=== PATIENT | female | born 1980 | race Two or more races ===

== ENCOUNTER → 2020-05-28 | Outpatient (CLI) | payer OTHER ==
--- NOTE | 2020-06-10 15:46 | REPMRS ---
Patient History The patient states she had a clinical breast exam in 2019. Family history of breast cancer at age 49 in maternal aunt, colorectal cancer in maternal grandmother, lung cancer in paternal grandfather. 3D TOMOSYNTHESIS WAS PERFORMED. The Sanjeev Boo lifetime risk for breast cancer is 14.3%. Volpara breast density b. Digital Woman Screen Mammo: May 28, 2020 - Exam #: [id number] Bilateral CC and MLO view(s) were taken. Technologist: [place] Philippe Technologist FINDINGS: There are scattered fibroglandular densities. There has been no change in the appearance of the mammogram from the prior studies. There is a mild amount of residual fibroglandular tissue which is fairly symmetric. There is no interval development of dominant mass, architectural distortion, or clustered microcalcification suggestive of malignancy. Assessment: BI-RADS/ACR category 1 mammogram. Negative Mammogram. Recommendation Routine screening mammogram in 1 year (for women over age 40). This mammogram was interpreted with the aid of an FDA-approved computer-aided dectection system. Electronically Signed By: Luis Fernando Rangel MD 06/10/20 [id number]
== END ==
LOC: M WHC 11:00
PROVIDERS: ATTEND Nurse Practitioner Family
DX: Z01.419 Encounter for gynecological examination (general) (routine) without abnormal findings (principal); Z12.31 Encounter for screening mammogram for malignant neoplasm of breast
CPT/HCPCS: 77063; 77067; 87624; G0123; G0463

== ENCOUNTER → 2020-05-28 | Outpatient (REF) | payer OTHER | LOC: M SFHCWAGY 18:42 | PROVIDERS: ATTEND Nurse Practitioner Family | DX: Z12.4 Encounter for screening for malignant neoplasm of cervix (principal); R87.610 Atypical squamous cells of undetermined significance on cytologic smear of cervix (ASC-US) | CPT/HCPCS: 87624; G0123 ==

== ENCOUNTER 2020-09-21 11:25 | Emergency (ER) | payer OTHER ==
[~2020-09-21] VITALS: Ht 165.1 cm; Wt 76.7 kg
[2020-09-21] MEDS ORDERED: ACET1TAB55 PO (11:34)
[2020-09-21] MEDS ORDERED: ATOR1TAB19 (11:34)
[2020-09-21] MEDS ORDERED: PLEG15IN (11:34)
[2020-09-21] MEDS ORDERED: EXCETAB33 PO (11:34)
[2020-09-21] MEDS ORDERED: OMEP-221 (11:34)
[2020-09-21] MEDS ORDERED: SERT50TA29 (11:34)
[2020-09-21] MEDS ORDERED: NS 1,000 ML IV ONE (11:55)
[2020-09-21] MEDS ORDERED: MORPHINE 4 MG/ML 1ML VIAL/SYRINGE (J2270) IV ONE (11:55)
[2020-09-21] MEDS ORDERED: ACETAMINOPHEN TAB 650MG DOSE (2X325MG) PO ONE (11:55)
[2020-09-21] MEDS ORDERED: PROMETHAZINE INJ 25 MG/ML VIAL (J2550) IV ONE (11:55)
[2020-09-21] MEDS ORDERED: IBUPROFEN 800 MG TAB PO ONE (13:35)
[2020-09-21 14:21] VITALS: BP 117/78
== END 2020-09-21 14:25 | disposition home or self-care (01) ==
LOC: M ED 11:25
DX: G43.909 Migraine, unspecified, not intractable, without status migrainosus (principal); R11.2 Nausea with vomiting, unspecified; G35 Multiple sclerosis; E78.5 Hyperlipidemia, unspecified; K21.9 Gastro-esophageal reflux disease without esophagitis; F17.200 Nicotine dependence, unspecified, uncomplicated; Z79.82 Long term (current) use of aspirin; Z79.899 Other long term (current) drug therapy
CPT/HCPCS: 96361; 96374; 96375; 99284; J2270

== ENCOUNTER 2020-09-23 12:50 | Emergency (ER) | payer OTHER ==
[~2020-09-23] VITALS: Ht 165.1 cm; Wt 77.8 kg
[~2020-09-23 12:50] MED LIST: ACET1TAB55 PO; ATOR1TAB19; EXCETAB33 PO; OMEP-221; PLEG15IN; SERT50TA29
[2020-09-23] MEDS ORDERED: NS 1,000 ML IV ONE (13:40)
[2020-09-23] MEDS ORDERED: KETOROLAC 30 MG/ML 1ML VIAL IV ONE (13:40)
[2020-09-23] MEDS ORDERED: METOCLOPRAMIDE INJ 10MG/2ML VIAL (J2765 PER 1) IV ONE (13:40)
[2020-09-23 14:01] LABS: BASO % 0.5 % (0.0-1.0); EOS # 0.1 10^3/uL (0.0-0.5); EOS % 1.7 % (0.0-3.0); HEMATOCRIT 34.9 % (36.0-47.0); HEMOGLOBIN 11.2 g/dl (12.0-15.5); LYMPH # 2.6 10^3/uL (1.5-5.0); LYMPH % 43.5 % (24.0-44.0); MEAN CORPUSCULAR HEMOGLOBIN 29.9 pg (27.0-33.0); MEAN CORPUSCULAR HGB CONC 32.1 g/dl (32.0-36.5); MEAN CORPUSCULAR VOLUME 93.1 fl (80.0-96.0); MONO # 0.6 10^3/uL (0.0-0.8); MONO % 9.2 % (2.0-8.0); NEUTROPHILS # 2.7 10^3/uL (1.5-8.5); NEUTROPHILS % 44.8 % (36.0-66.0); PLATELET COUNT, AUTOMATED 295 10^3/uL (150-450); RED BLOOD COUNT 3.75 10^6/uL (4.00-5.40)
[2020-09-23 14:23] LABS: BLOOD UREA NITROGEN 12 MG/DL (7-18); CALCIUM LEVEL 9.1 MG/DL (8.5-10.1); CARBON DIOXIDE LEVEL 27 MEQ/L (21-32); CHLORIDE LEVEL 111 MEQ/L (98-107); GLOMERULAR FILTRATION RATE > 60.0 (>60); GLUCOSE, FASTING 90 MG/DL (70-100); POTASSIUM SERUM 4.4 MEQ/L (3.5-5.1); SODIUM LEVEL 142 MEQ/L (136-145)
[2020-09-23] MEDS ORDERED: ONDA4TAB6 PO (14:49)
[2020-09-23] MEDS ORDERED: KETO10TAB PO (14:49)
[2020-09-23 14:54] VITALS: BP 104/54
== END 2020-09-23 15:04 | disposition home or self-care (01) ==
LOC: M ED 12:50
DX: G43.909 Migraine, unspecified, not intractable, without status migrainosus (principal); G35 Multiple sclerosis; R55 Syncope and collapse; Z79.82 Long term (current) use of aspirin; Z79.899 Other long term (current) drug therapy
CPT/HCPCS: 36415; 80048; 85025; 96361; 96374; 96375; 99284; J1885; J2765

== ENCOUNTER 2021-02-10 02:38 | Emergency (ER) | payer OTHER ==
[~2021-02-10] VITALS: Ht 165.1 cm; Wt 66.8 kg
[~2021-02-10 02:38] MED LIST changes: +KETO10TAB PO; +ONDA4TAB6 PO
[2021-02-10] MEDS ORDERED: RIZA10TA2 (03:13)
[2021-02-10] MEDS ORDERED: VENL37.598 (03:13)
[2021-02-10] MEDS ORDERED: diphenhydrAMINE 50MG/ML VIAL (J1200) IV ONE (07:20)
[2021-02-10] MEDS ORDERED: NS 1,000 ML IV ONE (07:20)
[2021-02-10] MEDS ORDERED: ACETAMINOPHEN 500 MG TAB PO ONE (07:20)
[2021-02-10] MEDS ORDERED: KETOROLAC 30 MG/ML 1ML VIAL IV ONE (07:20)
[2021-02-10] MEDS ORDERED: methylPREDNISolone 125MG 2ML VIAL IV ONE (10:05)
[2021-02-10 11:12] VITALS: BP 118/69
[2021-02-11] MEDS ORDERED: ACET1TAB16 PO (16:50)
== END 2021-02-10 11:14 | disposition home or self-care (01) ==
LOC: M ED 02:38
DX: G43.909 Migraine, unspecified, not intractable, without status migrainosus (principal); R11.0 Nausea; E78.5 Hyperlipidemia, unspecified; G35 Multiple sclerosis; F17.200 Nicotine dependence, unspecified, uncomplicated; Z79.82 Long term (current) use of aspirin; Z79.899 Other long term (current) drug therapy
CPT/HCPCS: 84702; 96361; 96374; 96375; 99284; J1200; J1885; J2930

== ENCOUNTER 2021-02-11 11:18 | Emergency (ER) | payer OTHER ==
[~2021-02-11] VITALS: Ht 165.1 cm; Wt 76.2 kg
[~2021-02-11 11:18] MED LIST changes: +RIZA10TA2; +VENL37.598
[2021-02-11 11:19] VITALS: BP 138/91
[2021-02-11] MEDS ORDERED: diphenhydrAMINE 50MG/ML VIAL (J1200) IV ONE (13:10)
[2021-02-11] MEDS ORDERED: ACETAMINOPHEN 500 MG TAB PO ONE (13:10)
[2021-02-11] MEDS ORDERED: NS 1,000 ML IV ONE (13:10)
--- NOTE | 2021-02-11 13:28 | REP ---
INDICATION: headache. COMPARISON: None. TECHNIQUE: CT BRAIN PERFORMED IN THE AXIAL PLANE. CORONAL RECONSTRUCTION IMAGES ARE PERFORMED. FINDINGS: THE VENTRICLES ARE NORMAL IN SIZE AND POSITION. THERE IS NO MIDLINE SHIFT OR MASS EFFECT. CEDENO-WHITE DIFFERENTIATION IS WELL MAINTAINED. THERE IS NO ACUTE INTRACRANIAL HEMORRHAGE OR EXTRA-AXIAL FLUID COLLECTION. BONE WINDOW EXAMINATION IS UNREMARKABLE. VISUALIZED MASTOID AIR CELLS AND PARANASAL SINUSES ARE CLEAR. IMPRESSION: NEGATIVE NONCONTRAST CT BRAIN. <Electronically signed by Jewel Rosenthal > 02/11/21 [id number]
[2021-02-11 14:10] LABS: BASO % 0.2 % (0.0-1.0); EOS % 0.1 % (0.0-3.0); HEMATOCRIT 35.1 % (36.0-47.0); HEMOGLOBIN 11.3 g/dl (12.0-15.5); LYMPH # 3.9 10^3/uL (1.5-5.0); LYMPH % 30.6 % (24.0-44.0); MEAN CORPUSCULAR HEMOGLOBIN 29.8 pg (27.0-33.0); MEAN CORPUSCULAR HGB CONC 32.2 g/dl (32.0-36.5); MEAN CORPUSCULAR VOLUME 92.6 fl (80.0-96.0); MONO # 0.8 10^3/uL (0.0-0.8); MONO % 6.3 % (2.0-8.0); NEUTROPHILS # 7.8 10^3/uL (1.5-8.5); NEUTROPHILS % 62.1 % (36.0-66.0); PLATELET COUNT, AUTOMATED 372 10^3/uL (150-450); RED BLOOD COUNT 3.79 10^6/uL (4.00-5.40); WHITE BLOOD COUNT 12.6 10^3/uL (4.0-10.0)
[2021-02-11 14:24] LABS: BLOOD UREA NITROGEN 11 MG/DL (7-18); CARBON DIOXIDE LEVEL 29 MEQ/L (21-32); CHLORIDE LEVEL 112 MEQ/L (98-107); CREATININE FOR GFR 0.52 MG/DL (0.55-1.30); GLOMERULAR FILTRATION RATE > 60.0 (>58); GLUCOSE, FASTING 87 MG/DL (70-100); POTASSIUM SERUM 3.7 MEQ/L (3.5-5.1); SODIUM LEVEL 146 MEQ/L (136-145)
[2021-02-11 14:25] LABS: CALCIUM LEVEL 8.8 MG/DL (8.5-10.1)
[2021-02-11] MEDS ORDERED: methylPREDNISolone 125MG 2ML VIAL IV ONE (14:45)
[2021-02-11] MEDS ORDERED: KETOROLAC 30 MG/ML 1ML VIAL IV ONE (16:10)
[2021-02-11] MEDS ORDERED: ACET1TAB16 PO (16:50)
== END 2021-02-11 17:16 | disposition home or self-care (01) ==
LOC: M ED 11:18
DX: G43.909 Migraine, unspecified, not intractable, without status migrainosus (principal); R11.0 Nausea; G35 Multiple sclerosis; E78.5 Hyperlipidemia, unspecified; R55 Syncope and collapse; F17.200 Nicotine dependence, unspecified, uncomplicated; Z79.82 Long term (current) use of aspirin; Z79.899 Other long term (current) drug therapy
CPT/HCPCS: 70450; 80048; 85025; 96361; 96374; 96375; 99283; J1200; J1885; J2930

== ENCOUNTER → 2021-02-26 | Outpatient (CLI) | payer OTHER ==
[~2021-02-26] MED LIST changes: +ACET1TAB16 PO
--- NOTE | 2021-02-26 17:04 | REP ---
INDICATION: R10.2 PELVIC PAIN. COMPARISON: None TECHNIQUE: Transvesical and transvaginal scanning FINDINGS: The uterus measures 10 x 5.6 x 5.2 cm. The parenchymal echo pattern is within normal limits. There no masses. The endometrial echo complex is smooth and unremarkable appearing measuring 9 mm in its greatest thickness. Adjacent to the ECC on the left there is an area of increased echoes which measures 2 cm. This is seen only on the transvesical images. I cannot confirm this on the endovaginal images. Right ovary measures 2.4 x 1.5 x 1.6 cm and is within normal limits with an RI 0.51 Left ovary measures 4.3 x 2 x 2.6 cm and is within normal limits with an RI 0.45 There is no free fluid in the cul-de-sac. Urinary bladder measures 4 x 5 by 7 cm. IMPRESSION: Focal areas of increased echoes in the posterior uterine body on the left but only seen on the transvesical images. The finding could be artifactual, however, I recommend a two-month follow-up. The examination is otherwise unremarkable. <Electronically signed by Samuel Lauren > 02/26/21 [id number]
== END ==
LOC: M WHC 15:13
PROVIDERS: ATTEND Nurse Practitioner Women's Health
DX: R10.2 Pelvic and perineal pain (principal)

== ENCOUNTER → 2021-04-03 | Outpatient (REF) | payer OTHER ==
[2021-04-03 12:40] LABS: HEPATITIS A ANTIBODY IGM NEGATIVE (NEGATIVE); HEPATITIS B CORE ANTIBODY IGM NEGATIVE (NEGATIVE); HEPATITIS B SURFACE ANTIGEN NEGATIVE (NEGATIVE); HEPATITIS C VIRUS ABY INDEX < 0.0 INDEX (<0.8)
== END ==
LOC: M LAB REF 11:09
PROVIDERS: ATTEND Registered Nurse
DX: R94.5 Abnormal results of liver function studies (principal); Z11.59 Encounter for screening for other viral diseases; Z79.899 Other long term (current) drug therapy

== ENCOUNTER → 2021-11-19 | Outpatient (CLI) | payer OTHER ==
[~2021-11-19] MED LIST changes: -ACET1TAB16 PO; +ACET300T48 PO; +FLON27.5 NARES; -OMEP-221; +OMEP40CA5; +PSEU120T19 PO
== END ==
LOC: M WHC 15:32
PROVIDERS: ATTEND Advanced Practice Midwife
DX: Z12.31 Encounter for screening mammogram for malignant neoplasm of breast (principal); R10.2 Pelvic and perineal pain; N88.8 Other specified noninflammatory disorders of cervix uteri; D25.9 Leiomyoma of uterus, unspecified; N83.201 Unspecified ovarian cyst, right side; N63.10 Unspecified lump in the right breast, unspecified quadrant; Z11.3 Encounter for screening for infections with a predominantly sexual mode of transmission; Z12.4 Encounter for screening for malignant neoplasm of cervix
CPT/HCPCS: 76830; 76856; 77063; 77067; 87624; 87661; 87810; 87850; G0123

== ENCOUNTER → 2021-11-19 | Outpatient (REF) | payer OTHER ==
[~2021-11-19] MED LIST changes: +EXCETAB32 PO; -EXCETAB33 PO
[2021-11-19 20:27] LABS: GC DNA AMPLIFICATION NEGATIVE (NEGATIVE)
== END ==
LOC: M PLALAB 15:33
PROVIDERS: ATTEND Advanced Practice Midwife
DX: Z11.3 Encounter for screening for infections with a predominantly sexual mode of transmission (principal); Z12.4 Encounter for screening for malignant neoplasm of cervix

== ENCOUNTER → 2021-12-02 | Outpatient (CLI) | payer OTHER | LOC: M WHC 14:05 | PROVIDERS: ATTEND Advanced Practice Midwife | DX: R92.8 Other abnormal and inconclusive findings on diagnostic imaging of breast (principal); N63.11 Unspecified lump in the right breast, upper outer quadrant | CPT/HCPCS: 76642; 77065; G0279 ==

== ENCOUNTER 2022-05-11 17:46 | Emergency (ER) | payer OTHER ==
[~2022-05-11] VITALS: Ht 165.1 cm; Wt 94.5 kg
[2022-05-11 17:47] VITALS: BP 134/79
[2022-05-11] MEDS ORDERED: VENL75CA47 (18:37)
[2022-05-11] MEDS ORDERED: OLAN2.5T25 (18:37)
[2022-05-11] MEDS ORDERED: GLAT40IN3 (18:37)
[2022-05-11] MEDS ORDERED: ELET20TA (18:37)
[2022-05-11] MEDS ORDERED: CLOB0.0548 (18:37)
[2022-05-11] MEDS ORDERED: RIME75TA (18:37)
== END 2022-05-11 22:06 | disposition left against medical advice (07) ==
LOC: M ED 17:46
DX: Z53.21 Procedure and treatment not carried out due to patient leaving prior to being seen by health care provider (principal)

== ENCOUNTER → 2022-08-04 | Outpatient (CLI) | payer OTHER ==
[~2022-08-04] MED LIST changes: +CLOB0.0548; +ELET20TA; +GLAT40IN3; +OLAN2.5T25; +RIME75TA; +VENL75CA47
== END ==
LOC: M WHC 10:53
PROVIDERS: ATTEND Advanced Practice Midwife
DX: N60.11 Diffuse cystic mastopathy of right breast (principal)

== ENCOUNTER → 2022-11-12 | Outpatient (REF) | payer OTHER | LOC: M PLALAB 11:23 | PROVIDERS: ATTEND Nurse Practitioner Family | DX: Z53.9 Procedure and treatment not carried out, unspecified reason (principal) ==

== ENCOUNTER → 2022-11-12 | Outpatient (CLI) | payer OTHER, MEDICAID ==
[2022-11-12 13:58] LABS: HCG, SERUM QUANTITATIVE < 2.6 MIU/ML (<4.2)
[2022-11-12 14:19] LABS: HEPATITIS B SURFACE ANTIGEN NEGATIVE (NEGATIVE)
[2022-11-12 14:32] LABS: HIV 1&2 SCREEN ATELLICA NEGATIVE (NEGATIVE)
[2022-11-12 14:40] LABS: HEPATITIS C VIRUS ABY INDEX 0.1 INDEX (<0.8)
[2022-11-12 14:41] LABS: HEPATITIS B CORE ANTIBODY IGM NEGATIVE (NEGATIVE)
== END ==
LOC: M PLALAB 11:06
PROVIDERS: ATTEND Nurse Practitioner Family
DX: Z11.3 Encounter for screening for infections with a predominantly sexual mode of transmission (principal)

== ENCOUNTER → 2023-04-21 | Outpatient (CLI) | payer OTHER, MEDICAID ==
[2023-04-21 15:35] LABS: HIV 1&2 SCREEN NEGATIVE (NEGATIVE)
[2023-04-21 15:43] LABS: HEPATITIS B CORE ANTIBODY IGM NEGATIVE (NEGATIVE)
[2023-04-21 15:44] LABS: HEPATITIS C VIRUS ABY INDEX 0.05 INDEX (<0.8)
[2023-04-21 17:23] LABS: GC DNA AMPLIFICATION NEGATIVE (NEGATIVE)
== END ==
LOC: M PLALAB 09:13
PROVIDERS: ATTEND Nurse Practitioner Family
DX: Z11.3 Encounter for screening for infections with a predominantly sexual mode of transmission (principal)

== ENCOUNTER 2024-06-22 13:51 | Emergency (ER) | payer MEDICAID, MEDICARE, OTHER ==
[~2024-06-22] VITALS: Ht 165.1 cm; Wt 104.1 kg
[~2024-06-22 13:51] MED LIST changes: -OLAN2.5T25; +OLAN2.5T53; +ONDA-282 PO; -ONDA4TAB6 PO
[2024-06-22] MEDS ORDERED: PROC10TA5 (14:02)
[2024-06-22] MEDS ORDERED: DULO1CAP4 (14:02)
[2024-06-22] MEDS ORDERED: HYDR-3363 (14:02)
[2024-06-22] MEDS ORDERED: VARE1TAB2 (14:02)
[2024-06-22] MEDS ORDERED: DIRO231C2 (14:02)
[2024-06-22] MEDS ORDERED: DULO1CAP6 (14:02)
[2024-06-22 14:59] LABS: HEPATITIS B SURFACE ANTIBODY POSITIVE (POSITIVE)
[2024-06-22 15:12] LABS: HEPATITIS B SURFACE ANTIGEN NEGATIVE (NEGATIVE)
[2024-06-22] MEDS: BICILLIN L-A 2,400,000 UNIT/4 ML SYRINGE (PENICILLIN G BENZATINE) IM ONE (15:15)
[2024-06-22 15:25] LABS: HIV 1&2 SCREEN NEGATIVE (NEGATIVE)
[2024-06-22 15:55] LABS: Trichomonas vaginalis (AMP) NOT DETECTED (NEGATIVE)
[2024-06-22 16:19] LABS: GC DNA AMPLIFICATION NEGATIVE (NEGATIVE)
[2024-06-22 16:29] VITALS: BP 135/66; TEMP 97.6; O2SAT 100
== END 2024-06-22 16:35 | disposition home or self-care (01) ==
LOC: M ED 13:51
DX: Z20.2 Contact with and (suspected) exposure to infections with a predominantly sexual mode of transmission (principal); G35 Multiple sclerosis; E78.00 Pure hypercholesterolemia, unspecified; F41.9 Anxiety disorder, unspecified; F32.A Depression, unspecified; Z79.899 Other long term (current) drug therapy
CPT/HCPCS: 86706; 86780; 86803; 87340; 87389; 87661; 87810; 87850; 96372; 99283; J0561

== ENCOUNTER 2024-08-22 05:58 | Emergency (ER) | payer MEDICARE, MEDICAID ==
[~2024-08-22] VITALS: Ht 165.1 cm; Wt 109.2 kg
[~2024-08-22 05:58] MED LIST changes: +DIRO231C2; +DULO1CAP4; +DULO1CAP6; +HYDR-3363; +PROC10TA5; +VARE1TAB2
[2024-08-22] MEDS: ACETAMINOPHEN 325 MG TAB PO ONE (06:19)
[2024-08-22] MEDS ORDERED: BENZ200C70 PO (07:58)
[2024-08-22 08:01] LABS: APPEARANCE, URINE CLEAR (CLEAR); BACTERIA, URINE AUTO NEGATIVE (NEGATIVE); BILIRUBIN, URINE AUTO NEGATIVE (NEGATIVE); BLOOD, URINE BLOOD NEGATIVE (NEGATIVE); COLOR, URINE YELLOW (YELLOW); GLUCOSE, URINE (UA) AUTO NEGATIVE (NEGATIVE); KETONE, URINE AUTO NEGATIVE (NEGATIVE); LEUKOCYTE ESTERASE, URINE AUTO NEGATIVE (NEGATIVE); NITRITE, URINE AUTO NEGATIVE (NEGATIVE); PROTEIN, URINE AUTO NEGATIVE (NEGATIVE); RBC, URINE AUTO 3 /HPF (0-3); SQUAMOUS EPITHELIAL CELL UR AU 1 /HPF (0-6); UROBILINOGEN, URINE AUTO 0.2 mg/dL (0.0-2.0); WBC, URINE AUTO 0 /HPF (0-3)
[2024-08-22] MEDS: IBUPROFEN 400MG TAB PO ONE (08:13)
[2024-08-22 08:36] VITALS: BP 139/81; TEMP 98.6; O2SAT 97
== END 2024-08-22 08:43 | disposition home or self-care (01) ==
LOC: M ED 05:58
DX: J09.X2 Influenza due to identified novel influenza A virus with other respiratory manifestations (principal); E78.5 Hyperlipidemia, unspecified; K21.9 Gastro-esophageal reflux disease without esophagitis; G43.909 Migraine, unspecified, not intractable, without status migrainosus; Z79.899 Other long term (current) drug therapy